=== PATIENT | female | born 1945 | race Caucasian/White ===

== ENCOUNTER 2017-07-01 14:45 | Emergency (ER) | payer MEDICARE, BC ==
[2017-07-01 14:56] VITALS: BP 137/73; PULSE 77; RESP 20; TEMP 96.8
--- NOTE | 2017-07-01 15:38 | XR ---
EXAMINATION TYPE: XR ribs RT w pa chest xray DATE OF EXAM: 07/01/2017 COMPARISON: NONE HISTORY: Pain TECHNIQUE: Single view of the chest 4 views of the ribs are submitted. FINDINGS: The lungs are clear. No Evidence for pneumothorax. No evidence for focal contusion. Medi astinal structures are midline. Evaluation of the ribs fails to demonstrate evidence for acute displ aced rib fracture or secondary sign of rib fracture. Healed fracture right rib #7. IMPRESSION: No acute displaced rib fracture or pulmonary contusion/pneumothorax.
--- NOTE | 2017-07-01 15:54 | ED ---
Fall HPI - General Chief Complaint: Fall Stated Complaint: Fell Time Seen by Provider: 07/01/17 14:57 Source: patient Mode of arrival: ambulatory - History of Present Illness Initial Comments: 72-year-old female patient presents to the emergency department today for complaints of multiple injuries after experiencing a fall today. Patient states around 11:30 this morning she was at her sister's house when she tripped over a mat and fell landing on the right side. She denies hitting her head or losing consciousness with this. She states she is having some bruising and swelling to the right forearm, she also has a cut to the right hand. She is also complaining of right rib pain and increased discomfort with deep breathing. She states that she was seen at [facility] and there was concern regarding the swelling to the right arm because she does take Coumadin. Patient states that she had her last INR drawn 3 weeks ago was stable. States that she gets these draws monthly and her numbers have been stable. She denies any shortness of breath, hemoptysis, or chest pain other than the right lateral ribs. Patient denies any current bleeding from the cut on her hand. States that she has had compression and ice to the right arm. She denies any current headache, dizziness, weakness, blurred vision, double vision, nausea, vomiting, neck pain, or back pain. She denies any hip pain or difficulty ambulating. - Related Data Allergies Allergy/AdvReac Type Severity Reaction Status Date / Time Sulfa (Sulfonamide Allergy Unknown Verified 07/01/17 14:56 Antibiotics) Review of Systems ROS Statement: Those systems with pertinent positive or pertinent negative responses have been documented in the HPI. ROS Other: All systems not noted in ROS Statement are negative. Past Medical History Past Medical History: Atrial Fibrillation, Coronary Artery Disease (CAD), CVA/ TIA, Hyperlipidemia, Hypertension, Myocardial Infarction (MS) History of Any Multi-Drug Resistant Organisms: None Reported Past Surgical History: Orthopedic Surgery Additional Past Surgical History / Comment(s): aortic valve replacement Past Psychological History: No Psychological Hx Reported Smoking Status: Never smoker Past Alcohol Use History: None Reported Past Drug Use History: None Reported General Exam Limitations: no limitations General appearance: alert, in no apparent distress, other (This is a well- developed, well-nourished elderly female patient in no acute distress. Vital signs upon presentation are temperature 96.8F, pulse 77, respirations 20, blood pressure 137/73, pulse ox 97% on room air.) Head exam: Present: atraumatic, normocephalic, normal inspection Eye exam: Present: normal appearance, PERRL, EOMI. Absent: scleral icterus, conjunctival injection, periorbital swelling ENT exam: Present: normal exam, normal oropharynx, mucous membranes moist Neck exam: Present: normal inspection, full ROM, other (Nontender, no step-off, no deformity to firm midline palpation of the posterior cervical spine. Full range of motion without pain or limitation.). Absent: tenderness, meningismus, lymphadenopathy Respiratory exam: Present: normal lung sounds bilaterally, chest wall tenderness (Patient has some right lateral chest wall tenderness, near the midaxillary line. No evidence of ecchymosis, erythema, or swelling to the area. No evidence of bony deformity or step-off with palpation of the ribs.). Absent: respiratory distress, wheezes, rales, rhonchi, stridor Cardiovascular Exam: Present: regular rate, normal rhythm, normal heart sounds. Absent: systolic murmur, diastolic murmur, rubs, gallop, clicks GI/Abdominal exam: Present: soft, normal bowel sounds. Absent: distended, tenderness, guarding, rebound, rigid Extremities exam: Present: full ROM, tenderness (Tenderness over the proximal aspect of the right forearm.), normal capillary refill, other (Patient has area of swelling and ecchymosis noted to the dorsal aspect of the proximal right forearm. This is consistent with hematoma. Patient has no bony tenderness over the elbow joint. She has full range of motion, full pronation, and full supination without pain or limitation. Skin to the right forearm is otherwise pink, warm, and dry. Cap refills less than 3 seconds. Radial pulses 2+ and equal bilaterally. Patient also has a small laceration at the base of her right fifth digit, this is superficial and bleeding is controlled.). Absent: normal inspection, pedal edema, joint swelling, calf tenderness Back exam: Present: normal inspection, other (Nontender, no step-off, no deformity to firm midline palpation of the thoracic and lumbar vertebrae. Full range of motion without pain or limitation.). Absent: vertebral tenderness Neurological exam: Present: alert, oriented X3, CN II-XII intact Psychiatric exam: Present: normal affect, normal mood Skin exam: Present: warm, dry, intact, normal color. Absent: rash Course Vital Signs 07/01/17 14:51 Temperature 96.8 F L Pulse Rate 77 Respiratory 20 Rate Blood Pressure 137/73 O2 Sat by Pulse 97 Oximetry Medical Decision Making - Medical Decision Making 72-year-old female patient presents to the emergency department today for evaluation of multiple injuries after a fall accident. Physical examination did reveal tenderness to the right lateral ribs at the midaxillary line. She also had evidence of hematoma to the right proximal forearm. There is a small 0.5 centimeter laceration to the base of the right fifth digit. This was superficial, bleeding controlled, did not require repair. Chest x-ray with right rib images were obtained and showed no acute cardiopulmonary process or evidence of rib fracture. Patient had good range of motion to the right elbow with no bony tenderness. We did discuss all results. Return parameters were discussed in detail. We'll let her follow up with her primary care physician for further evaluation and lab testing regarding her INR. She verbalizes understanding and agrees with this plan. - Radiology Data Radiology results: report reviewed, image reviewed Single view of the chest and 4 views of the right ribs are submitted. The lungs are clear. No evidence for pneumothorax. No evidence for focal contusion. Mediastinal structures are midline. Evaluation of the ribs fails to demonstrate evidence for acute displaced rib fracture secondary sign of rib fracture. Healed fracture right rib #7. Impression by Dr. Armstrong shows no acute displaced rib fracture or pulmonary contusion/pneumothorax. Disposition Clinical Impression: Fall with injury, Traumatic hematoma of right forearm, Contusion of rib on right side Disposition: HOME SELF-CARE Condition: Good Instructions: Fall Prevention for Older Adults (ED), Contusion in Adults (ED) Additional Instructions: Apply ice to the painful areas. 20 minutes at a time at least 4 times daily. Practice coughing and deep breathing every hour while awake. Follow-up she primary care physician for recheck in 1-2 days. Return here immediately for any new, worsening, or concerning symptoms. Referrals: Andrea Quintanilla MD [Primary Care Provider] - 1-2 days Time of Disposition: 15:54
== END 2017-07-01 16:12 | disposition home or self-care (01) ==
LOC: EC 14:45
DX: S61.216A Laceration without foreign body of right little finger without damage to nail, initial encounter (principal); S50.11XA Contusion of right forearm, initial encounter; S20.211A Contusion of right front wall of thorax, initial encounter; I48.91 Unspecified atrial fibrillation; Z86.73 Personal history of transient ischemic attack (TIA), and cerebral infarction without residual deficits; Z79.01 Long term (current) use of anticoagulants; Z88.2 Allergy status to sulfonamides; W01.0XXA Fall on same level from slipping, tripping and stumbling without subsequent striking against object, initial encounter; Y92.89 Other specified places as the place of occurrence of the external cause
CPT/HCPCS: 99283